=== PATIENT | female | born 1960 | race Caucasian/White ===

== ENCOUNTER 2017-06-16 09:32 | Emergency (ER) | payer BC ==
--- NOTE | 2017-06-16 10:33 | CT ---
Head CT Technique: Multiple axial sections through the brain were obtained. Intravenous contrast was not utilized. Comparison: No previous intracranial imaging. Findings: Ventricles along with basal cisterns and sulci over the convexities are within normal limits for the patient's age. No abnormal parenchymal densities are seen. No evidence of intracranial hemorrhage. No midline shift or mass effect is seen. Bone window settings were reviewed which shows no acute calvarial abnormality. Visualized sinuses are clear. Impression: 1. No acute intracranial abnormality is seen. Diagnostic code #1
--- NOTE | 2017-06-16 10:44 | EDM.PDOC ---
ED HPI GENERAL MEDICAL PROBLEM - General Chief Complaint: Headache Stated Complaint: HEAD PAIN Time Seen by Provider: 06/16/17 09:42 Source of Information: Reports: Patient, RN Notes Reviewed History Limitations: Reports: No Limitations - History of Present Illness INITIAL COMMENTS - FREE TEXT/NARRATIVE: The patient states that she developed a headache, felt at the base of her skull , coming up over the top of her head to her bilateral temples, around 09:00 this morning. It came on suddenly. It is sharp in character. She has had slight nausea, but no emesis. No visual changes. No photophobia, although she reports mild phonophobia. No neurologic symptoms, such as tingling, numbness, or weakness. While the patient gets a headache about once every 2 months, she denies a similar type headache in the past. The patient was seen by her chiropractor today, in order to treat a headache, but her chiropractor was concerned that this headache was different than most, therefore physically brought her to the ED today. The patient denies medical treatment of her headache today. The patient states that she has not previously had an imaging study of her head. The patient's PCP is Dr. Olga Lidia Kwan. Parietal Headache Pain Score (Numeric/FACES): 10 - Related Data Allergies Allergy/AdvReac Type Severity Reaction Status Date / Time No Known Allergies Allergy Verified 06/16/17 09:40 Home Meds: Home Meds Hydrochlorothiazide 12.5 mg PO DAILY 06/16/17 [History] Orphenadrine [Norflex] 1 tab PO Q12H #10 tab.er 06/16/17 [Rx] Venlafaxine. 0.5 tab PO BEDTIME 06/16/17 [History] Past Medical History Cardiovascular History: Reports: High Cholesterol, Hypertension Psychiatric History: Reports: Depression - Past Surgical History HEENT Surgical History: Reports: Oral Surgery ([place] teeth extraction) Female Surgical History: Reports: Hysterectomy, Salpingo-Oophorectomy Social & Family History - Tobacco Use Smoking Status *Q: Current Every Day Smoker Years of Tobacco use: 37 Packs/Tins Daily: 0.5 Packs/Tins Daily Comment: Down from 1 ppd - Caffeine Use Caffeine Use: Reports: Coffee - Alcohol Use Alcohol Use History: Yes Alcohol Use Frequency: Socially - Recreational Drug Use Recreational Drug Use: No - Living Situation & Occupation Living situation: Reports: Single, Alone Occupation: Employed ([employer]) ED ROS GENERAL - Review of Systems Review Of Systems: See Below Constitutional: Reports: No Symptoms HEENT: Reports: No Symptoms Respiratory: Reports: No Symptoms Cardiovascular: Reports: No Symptoms Endocrine: Reports: No Symptoms GI/Abdominal: Reports: No Symptoms : Reports: No Symptoms Musculoskeletal: Reports: No Symptoms Skin: Reports: No Symptoms Neurological: Reports: No Symptoms Psychiatric: Reports: No Symptoms Hematologic/Lymphatic: Reports: No Symptoms Immunologic: Reports: No Symptoms - Physical Exam Exam: See Below Exam Limited By: No Limitations General Appearance: Alert, WD/WN, No Apparent Distress Eye Exam: Bilateral Eye: EOMI, Normal Inspection, PERRL Ears: Normal External Exam, Normal Canal, Hearing Grossly Normal, Normal TMs Nose: Normal Inspection, Normal Mucosa, No Blood Throat/Mouth: Normal Inspection, Normal Lips, Normal Voice, No Airway Compromise Head Exam: Atraumatic, Normocephalic Neck: Normal Inspection, Supple, Non-Tender, Full Range of Motion Respiratory/Chest: No Respiratory Distress, Lungs Clear, Normal Breath Sounds, No Accessory Muscle Use Cardiovascular: Normal Peripheral Pulses, Regular Rate, Rhythm, No Gallop, No JVD, No Murmur, No Rub GI/Abdominal: Normal Bowel Sounds, Soft, Non-Tender, No Organomegaly, No Distention, No Abnormal Bruit, No Mass (Female) Exam: Deferred Rectal (Female) Exam: Deferred Neuro Exam (Abbreviated): Alert, Oriented, CN II-XII Intact, Normal Cognition, No Motor/Sensory Deficits Back Exam: Normal Inspection, Full Range of Motion, NT Extremities: Normal Inspection, Normal Range of Motion, No Pedal Edema, Normal Capillary Refill Psychiatric: Normal Affect Skin Exam: Warm, Dry, Intact, Normal Color, No Rash Course - Vital Signs Last Recorded V/S: Last Vital Signs Temp 36.6 C 06/16/17 09:38 Pulse 93 06/16/17 09:38 Resp 16 06/16/17 09:38 BP 154/116 H 06/16/17 09:38 Pulse Ox 96 06/16/17 09:38 - Orders/Labs/Meds Meds: Medications Discontinued Medications Generic Name Dose Route Start Last Admin Trade Name Freq PRN Reason Stop Dose Admin Benztropine Mesylate 1 mg 06/16/17 11:29 06/16/17 12:00 Cogentin PO 06/16/17 11:30 1 mg ONETIME STA Administration Haloperidol Lactate 5 mg 06/16/17 11:29 06/16/17 11:53 Haldol IM 06/16/17 11:30 5 mg ONETIME ONE Administration Sodium Chloride 500 mls @ 1,000 mls/hr 06/16/17 11:29 06/16/17 11:47 Normal Saline IV 06/16/17 11:58 1,000 mls/hr .BOLUS ONE Administration Ondansetron HCl 4 mg 06/16/17 11:29 06/16/17 11:48 Zofran IVPUSH 06/16/17 11:30 4 mg ONETIME ONE Administration - Re-Assessments/Exams Free Text/Narrative Re-Assessment/Exam: 06/16/17 11:25 CT of the head without contrast is read by Dr. Jalloh as: 1. No acute intracranial abnormality is seen. 06/16/17 11:30 The patient states that when she was in her teenage years, she suffered from "migraine" type headaches, would be seen in the emergency room, given a shot of something, home and sleep, and that her symptoms would resolve. She states that her current headache feels similar to that. While the patient's description of her headache is not classic for a migraine, I see no harm in treating her for migraine. If it works, then the patient's headache is a migraine, and we can prescribe an abortive medication, such as Maxalt, going forward. If it does not work, then the patient's headache is most likely a tension-type headache, which can be treated with a muscle relaxant and ibuprofen. The patient agrees with this approach. I have therefore ordered Haldol, Cogentin, Zofran, and normal saline. 06/16/17 12:13 20 minutes after IM Haldol, the patient reports no improvement of her symptoms. Significantly reduces the likelihood that her headache is migrainous in etiology. Her headache, then, is most likely a tension-type headache. I will start her on Norflex and ibuprofen, and e-prescribe additional Norflex. Departure - Departure Time of Disposition: 12:14 Disposition: Home, Self-Care 01 Condition: Good Clinical Impression: Tension type headache - Discharge Information Referrals: PCP,None [Primary Care Provider] - Forms: ED Department Discharge Additional Instructions: You were seen in the emergency room for a headache. Workup in the ER included a CT scan of her head, which was normal. You were treated with an anti-migraine medicine, which did not change your symptoms, indicating that your headache is not a migraine. Based on your history and physical examination, your headache is MOST LIKELY a tension-type headache. You have been started on the muscle relaxant Norflex. Take one tablet every 12 hours, as prescribed. You have been started on the anti-inflammatory medicine ibuprofen. Take 2-3 tablets (400-600 mg) up to every 8 hours, with food, as needed for pain. Get plenty of rest in a dark, quiet place. Stay well hydrated. If any other problems, please do not hesitate to return to the ER.
[2017-06-16] MEDS ORDERED: Ondansetron 4 MG/2 ML SDV IVPUSH ONE (11:29)
[2017-06-16] MEDS ORDERED: Haloperidol Lactate 5 MG/ML SDV IM ONE (11:29)
[2017-06-16] MEDS ORDERED: Sodium Chloride 0.9% 500 ML IV ONE (11:29)
[2017-06-16] MEDS ORDERED: Benztropine 1 MG Tab PO STA (11:29)
[2017-06-16] MEDS ORDERED: Orphenadrine 100 MG Tab.ER PO STA (12:12)
[2017-06-16] MEDS ORDERED: Ibuprofen 600 MG Tab PO ONE (12:13)
== END 2017-06-16 12:29 | disposition home or self-care (01) ==
LOC: JD.ED 09:32
DX: G44.209 Tension-type headache, unspecified, not intractable (principal); F17.210 Nicotine dependence, cigarettes, uncomplicated; I10 Essential (primary) hypertension
CPT/HCPCS: 70450; 96361; 96372; 96374; 99284; A9270; J1630; J2405; J7040

== ENCOUNTER 2018-10-21 14:30 | Emergency (ER) | payer BC ==
--- NOTE | 2018-10-21 14:49 | EDM.PDOC ---
ED HPI GENERAL MEDICAL PROBLEM - General Chief Complaint: Chest Pain Stated Complaint: SOB Time Seen by Provider: 10/21/18 14:43 Source of Information: Reports: Patient History Limitations: Reports: No Limitations - History of Present Illness INITIAL COMMENTS - FREE TEXT/NARRATIVE: 57-year-old female presents to the ED for evaluation of upper right anterior chest pain that started today. The pain is very sharp and stabbing and worsened by deep breathing i.e. pleuritic pain. She has a cough of some brownish sputum production as she is trying to quit smoking. No associated fever chills. Through to her right upper back on inspiration. No recent chest wall injuries. Her's that she had pleurisy about 25 years ago and it feels very similar. Will history especially prolonged sitting. No history of previous DVT. She did start meloxicam for arthritis about a week ago. Has ECG done by triage nurse shows sinus rhythm at 100/m with a incomplete left bundle branch block and nonspecific intraventricular conduction delay pattern. There are Q waves in 3 and aVF but they Q waves or less than 25% of the QRS complex and aVF and are considered insignificant. a history of mild hypertension. Onset: Today Onset Date: 10/21/18 Onset Time: 08:00 (Sensual he woke up with mild pain is which is progressed as the day has gone on.) Duration: Hour(s): Location: Reports: Chest (Right upper anterior chest rating through to her back) Quality: Reports: Sharp, Stabbing, Other (Pain is sharp and stabbing and pleuritic.) Severity: Moderate (Rates the pain as 7 or 8 out of 10 however.) Improves with: Reports: Other Worsens with: Reports: Other (Shallow breathing deep breathing or coughing make it much worse.) Associated Symptoms: Reports: No Other Symptoms, Chest Pain, Shortness of Breath. Denies: Confusion, Cough, cough w sputum, Diaphoresis, Fever/Chills, Headaches (See history of present illness), Loss of Appetite, Malaise, Nausea/ Vomiting, Rash, Seizure, Syncope (Subjective sensation of shortness of breath has deep breathing makes the pain in her chest worse.), Weakness Treatments [employer] EDUCATION: Reports: Other (see below) (None.) Chest Pain Score (Numeric/FACES): 8 - Related Data Allergies Allergy/AdvReac Type Severity Reaction Status Date / Time No Known Allergies Allergy Verified 06/16/17 09:40 Home Meds: Home Meds Hydrochlorothiazide 12.5 mg PO DAILY 06/16/17 [History] Venlafaxine. 0 mg PO BEDTIME 06/16/17 [History] Meloxicam 0 mg PO DAILY 10/21/18 [History] atorvaSTATin [Lipitor] 10 mg PO DAILY 10/21/18 [History] oxyCODONE HCl/Acetaminophen [Percocet 5-325 mg Tablet] 1 - 2 each PO Q4H PRN #8 tablet 10/21/18 [Rx] predniSONE [Deltasone] 20 mg PO ASDIRECTED #15 tablet 10/21/18 [Rx] Past Medical History Cardiovascular History: Reports: High Cholesterol, Hypertension Psychiatric History: Reports: Depression - Past Surgical History HEENT Surgical History: Reports: Oral Surgery ([place] teeth extraction) Female Surgical History: Reports: Hysterectomy, Salpingo-Oophorectomy Social & Family History - Caffeine Use Caffeine Use: Reports: Coffee - Living Situation & Occupation Living situation: Reports: Single, Alone Occupation: Employed ([employer]) ED ROS GENERAL - Review of Systems Review Of Systems: See Below Constitutional: Reports: No Symptoms HEENT: Reports: No Symptoms Respiratory: Reports: Shortness of Breath, Pleuritic Chest Pain (Subjective sensation of shortness of breath due to), Cough ( pleuritic chest painmild cough bringing up a little bit of brownish sputum at times. Trying to quit smoking. ) Cardiovascular: Reports: Chest Pain, Blood Pressure Problem (See history of present illness). Denies: Claudication, Dyspnea on Exertion, Edema, Lightheadedness, Orthopnea ( chronic hypertension usually well-controlled with current medications elevated at the time of examination 161/89.), Palpitations Endocrine: Reports: No Symptoms GI/Abdominal: Reports: Other (Occasional GERD or heartburn but not bad recently. ) : Reports: No Symptoms Musculoskeletal: Reports: Other (Has some arthritis particularly in her hands knees and low back. Currently started on meloxicam 15 mg a day week ago) Skin: Reports: No Symptoms Neurological: Reports: No Symptoms Psychiatric: Reports: No Symptoms Hematologic/Lymphatic: Reports: No Symptoms Immunologic: Reports: No Symptoms ED EXAM, GENERAL - Physical Exam Exam: See Below Exam Limited By: No Limitations General Appearance: Alert, WD/WN, Mild Distress (She is quite anxious.), Other ( O2 sats reveal 97% on room air respiratory rate of 18) Eye Exam: Bilateral Eye: Normal Inspection Ears: Normal TMs Throat/Mouth: Normal Inspection, Normal Lips, Normal Oropharynx Head: Atraumatic, Normocephalic Neck: Normal Inspection, Supple, Non-Tender, Full Range of Motion. No: Carotid Bruit, Lymphadenopathy (L), Lymphadenopathy (R) Respiratory/Chest: No Respiratory Distress, Lungs Clear, Normal Breath Sounds, No Accessory Muscle Use, Other (Marked chest wall tenderness on the right side particularly ribs 34 and 5 in the midclavicular line. His in comparison of the left side which was minimally tender over the fourth rib only.) Cardiovascular: Normal Peripheral Pulses, Regular Rate, Rhythm, No Edema, No Gallop, No Murmur, No Rub Peripheral Pulses: 2+: Posterior Tibial (L), Posterior Tibial (R), Dorsalis Pedis (L), Dorsalis Pedis (R) GI/Abdominal: Normal Bowel Sounds, Soft, Non-Tender, No Organomegaly, No Abnormal Bruit, No Mass, Pelvis Stable, Other (No signs of gallbladder disease. No previous surgical scars in the abdomen) Back Exam: Normal Inspection, Full Range of Motion, Other (Slight muscle spasm over rib head #7 on the right side. This did give the patient some pain on palpation as well. To be a mild rib head subluxation). No: CVA Tenderness (L), CVA Tenderness (R) Extremities: Normal Inspection, Normal Range of Motion, Non-Tender, No Pedal Edema Neurological: Alert, Oriented, CN II-XII Intact, Normal Cognition Psychiatric: Anxious (Mildly anxious.) Skin Exam: Warm, Dry, Intact, Normal Color, No Rash EKG INTERPRETATION EKG Date: 10/21/18 Time: 14:38 Rhythm: NSR Rate (Beats/Min): 99 Cameron: Normal P-Wave: Present QRS: Other (There is a nonspecific intraventricular conduction delay. Aleve she is going on to develop a left bundle branch block. There are Q waves in 3 and aVF. Q-wave in aVF is less than 25% of the QRS complexes is considered insignificant. Therefore I disagree with the computer finding of an inferior wall CA.) ST-T: Other (There is T-wave flattening in lead 3.) QT: Prolonged (QTC is minimally prolonged) EKG Interpretation Comments: Abnormal ECG Course - Vital Signs Last Recorded V/S: Last Vital Signs Temp 36.4 C 10/21/18 14:37 Pulse 101 H 10/21/18 14:37 Resp 18 10/21/18 14:37 BP 161/89 H 10/21/18 14:37 Pulse Ox 97 10/21/18 14:37 - Orders/Labs/Meds Orders: Active Orders 24 hr Category Date Time Status EKG Documentation Completion [RC] STAT Care 10/21/18 14:54 Active Sodium Chloride 0.9% [Normal Saline] 1,000 ml Med 10/21/18 15:00 Active IV ASDIRECTED Medication Orders Sodium Chloride (Normal Saline) 1,000 mls @ 125 mls/hr IV ASDIRECTED RADHA Last Admin: 10/21/18 15:05 Dose: 125 mls/hr Labs: Laboratory Tests 10/21/18 10/21/18 10/21/18 Range/Units 15:00 15:00 15:00 WBC 9.17 (3.98-10.04) K/mm3 RBC 4.71 (3.98-5.22) M/mm3 Hgb 14.5 (11.2-15.7) gm/L Hct 44.0 (34.1-44.9) % MCV 93.4 (79.4-94.8) fl MCH 30.8 (25.6-32.2) pg MCHC 33.0 (32.2-35.5) g/dl RDW Std Deviation 44.2 (36.4-46.3) fL Plt Count 235 (182-369) K/mm3 MPV 9.1 L (9.4-12.3) fl Neutrophils % (Manual) 78 H (40-60) % Band Neutrophils % 0 (0-10) % Lymphocytes % (Manual) 18 L (20-40) % Atypical Lymphs % 0 % Monocytes % (Manual) 3 (2-10) % Eosinophils % (Manual) 1 (0.7-5.8) % Basophils % (Manual) 0 L (0.1-1.2) Platelet Estimate Adequate RBC Morph Comment Normal PT 10.1 (9.5-12.1) SECONDS INR 0.93 D-Dimer, Quantitative 0.91 H (0.19-0.50) mg/L Sodium 142 (136-145) mEq/L Potassium 3.6 (3.5-5.1) mEq/L Chloride 104 (98-107) mEq/L Carbon Dioxide 27 (21-32) mEq/L Anion Gap 14.6 (5-15) BUN 21 H (7-18) mg/dL Creatinine 0.9 (0.55-1.02) mg/dL Est Cr Clr Drug Dosing 63.78 mL/min Estimated GFR (MDRD) > 60 (>60) mL/min BUN/Creatinine Ratio 23.3 H (14-18) Glucose 155 H (74-106) mg/dL Calcium 9.3 (8.5-10.1) mg/dL Total Bilirubin 0.3 (0.2-1.0) mg/dL AST 18 (15-37) U/L ALT 40 (14-59) U/L Alkaline Phosphatase 114 (46-116) U/L Lactate Dehydrogenase 194 (81-234) U/L CK-MB (CK-2) 0.5 (0-3.6) ng/ml Troponin I < 0.017 (0.00-0.056) ng/mL C-Reactive Protein < 0.2 (<1.0) mg/dL Total Protein 7.3 (6.4-8.2) g/dl Albumin 4.0 (3.4-5.0) g/dl Globulin 3.3 gm/dL Albumin/Globulin Ratio 1.2 (1-2) Meds: Medications Generic Name Dose Route Start Last Admin Trade Name Freq PRN Reason Stop Dose Admin Sodium Chloride 1,000 mls @ 125 mls/hr 10/21/18 15:00 10/21/18 15:05 Normal Saline IV 125 mls/hr ASDIRECTED RADHA Administration Discontinued Medications Generic Name Dose Route Start Last Admin Trade Name Freq PRN Reason Stop Dose Admin Hydromorphone HCl 0.5 mg 10/21/18 14:53 10/21/18 15:06 Dilaudid IVPUSH 10/21/18 14:54 0.5 mg ONETIME ONE Administration Ondansetron HCl 4 mg 10/21/18 14:53 10/21/18 15:06 Zofran IVPUSH 10/21/18 14:54 4 mg ONETIME ONE Administration - Radiology Interpretation Free Text/Narrative:: 57-year-old female presents to the ED with pleuritic right upper anterior chest pain radiate through to her right upper back. She awoke with mild cyanosis morning but as the day has gone on the pain has worsened. Every breath hurts indicating a pleuritic component to the pain. I'm able to localize pain to the right upper anterior ribs particularly 34 and 5 in the midclavicular line. Clear to auscultation. Eyes cough or sputum production. No history of DVT. I was going to give her Toradol 30 mg IV but apparently she started meloxicam 15 mg once daily about a week ago and therefore Toradol is relatively contraindicated. We'll give her Dilaudid 0.5 mg IV with Zofran 4 mg IV for pain rated at 7-8 out of 10. One view chest x-ray. Routine labs to include a d-dimer and a troponin. ECG does not show any signs of acute ischemia. It appears to be chest wall in origin with a pleuritic component. - Re-Assessments/Exams Free Text/Narrative Re-Assessment/Exam: 10/21/18 15:45 portable chest x-ray reveals heart size to be normal tortuous thoracic aorta is seen lungs are clear with no parenchymal changes. Scoliosis is noted within the spine with scattered degenerative changes. 10/21/18 16:04 Part of the labs are back. PT is 10.1 with an INR of 0.93D dimer is slightly elevated at 0.91. Sodium 142 with potassium of 3.6. Chloride 104 the bicarbonate 27. Anion gap is 14.6. BUN is 21 with a creatinine of 0.9. GFR is greater than 60. Blood urea creatinine ratio is elevated at 23.3 indicating volume depletion. Glucose 155. Calcium 9.3 liver function normal. LDH is 194 normal. CK-MB fraction 0.5 troponin I less than 0.017. C-reactive protein less than 0.2. 10/21/18 16:39 White count is 9.17 with 70% neutrophils and no band cells reported. Hemoglobin is 14.5 hematocrit is 44.0. Platelet count is 235,000. Discussed the findings with the patient. It appears to be chest wall inflammation. I'm going to add Deltasone 20 mg 3 times a day to her treatment plan for 5 days and then once in the morning only for another 5 days to relieve inflammation. She's already on meloxicam and she will continue this once daily. Departure - Departure Time of Disposition: 16:43 Disposition: Home, Self-Care 01 Condition: Fair Clinical Impression: Non-cardiac chest pain, Pain of anterior chest wall with respiration Prescriptions: oxyCODONE HCl/Acetaminophen [Percocet 5-325 mg Tablet] 1 - 2 each PO Q4H PRN #8 tablet PRN Reason: pain relief. predniSONE [Deltasone] 20 mg PO ASDIRECTED #15 tablet Referrals: Nichole Atkinson NP [Primary Care Provider] - Forms: ED Department Discharge Additional Instructions: Evaluation the emergency room today in regards to development of pleuritic right upper anterior chest pain. The pain appears to be coming from the chest wall as ribs 234 and 5 are exquisitely tender in the midline of the collarbone. Test x-ray was clear heart tracing was normal. Lab tests proved to be negative for any infection or heart attack or blood clot in the lung. Images therefore anti-inflammatory Deltasone 20 mg tablet first thing in the morning with breakfast and again at supper time for 5 days and then once in the morning only for another 5 days. First tablet of prednisone was given in the ED before you were discharged from the hospital. He takes 4-6 hours to start to work. Continue with meloxicam once daily as well. In pill Percocet 5/325 mg may be taken if needed for severe pain in the next few days. Only can be used when you' re not at work or not driving. Expect gradual improvement in the pleuritic chest pain over the next 3 days. Follow-up with personal care physician or return to the ED if any further problems occur. - My Orders Last 24 Hours: My Active Orders 10/21/18 14:54 EKG Documentation Completion [RC] STAT 10/21/18 15:00 Sodium Chloride 0.9% [Normal Saline] 1,000 ml IV ASDIRECTED - Assessment/Plan Last 24 Hours: My Active Orders 10/21/18 14:54 EKG Documentation Completion [RC] STAT 10/21/18 15:00 Sodium Chloride 0.9% [Normal Saline] 1,000 ml IV ASDIRECTED
[2018-10-21] MEDS ORDERED: HYDROmorphone 1 MG/ML Syringe IVPUSH ONE (14:53)
[2018-10-21] MEDS ORDERED: Ondansetron 4 MG/2 ML SDV IVPUSH ONE (14:53)
[2018-10-21] MEDS ORDERED: Sodium Chloride 0.9% 1,000 ML IV SCH (15:00)
--- NOTE | 2018-10-21 15:39 | CR ---
Chest: Portable view of the chest was obtained. Comparison: No prior chest x-ray. Heart size is normal. Tortuous thoracic aorta is seen. Lungs are clear with no acute parenchymal change. Scoliosis is noted within the spine with scattered degenerative change. Impression: 1. Incidental findings. Nothing acute is seen. Diagnostic code #2
[2018-10-21] MEDS ORDERED: predniSONE 20 MG Tab PO ONE (16:44)
== END 2018-10-21 17:24 | disposition home or self-care (01) ==
LOC: JD.ED 14:30
DX: R07.89 Other chest pain (principal); I10 Essential (primary) hypertension; E78.00 Pure hypercholesterolemia, unspecified; Z79.899 Other long term (current) drug therapy
CPT/HCPCS: 36415; 71045; 80053; 82553; 83615; 84484; 85007; 85027; 85379; 85610; 86140; 93005; 96361; 96374; 96375; 99284; A9270; J1170; J2405; J7040

== ENCOUNTER 2024-12-07 09:11 | Emergency (ER) | payer BC, MEDICARE ==
[2024-12-07 09:57] LABS: BASOPHILS PERCENT AUTO 0.3 % (0.0-1.0); EOSINOPHILS PERCENT AUTO 0.3 % (0.0-6.0); HEMATOCRIT 38.1 % (37.0-47.0); HEMOGLOBIN 13.2 gm/dl (12.0-16.0); IMMATURE GRAN ABSOLUTE AUTO 0.03 K/mm3 (0.00-0.05); IMMATURE GRAN PERCENT AUTO 0.3 % (0.0-0.4); LYMPHOCYTES ABSOLUTE AUTO 1.3 K/mm3 (1.0-4.8); LYMPHOCYTES PERCENT AUTO 12.2 % (24.0-44.0); MEAN CORPUSCULAR HEMOGLOBIN 31.7 pg (28.0-32.0); MEAN CORPUSCULAR HGB CONC 34.6 g/dl (32.0-36.0); MEAN CORPUSCULAR VOLUME 91.4 fl (83.0-99.0); MEAN PLATELET VOLUME 10.8 fl (9.4-12.3); MONOCYTES ABSOLUTE AUTO 1.6 K/mm3 (0.0-0.8); MONOCYTES PERCENT AUTO 14.8 % (0.0-8.0); NEUTROPHILS ABSOLUTE AUTO 7.9 K/mm3 (1.8-7.7); NEUTROPHILS PERCENT AUTO 72.1 % (41.0-71.0); PLATELET COUNT,PLT 166 K/mm3 (150-400); RED BLOOD CELL COUNT 4.17 M/mm3 (4.10-5.30); WHITE BLOOD CELL COUNT,WBC 10.95 K/mm3 (3.9-11.3)
[2024-12-07 10:22] LABS: INR 4.35; PROTHROMBIN TIME 41.9 SECONDS (9.7-12.0)
[2024-12-07 10:23] LABS: PTT,PARTIAL THROMBOPLSTIN TIME 52.6 SECONDS (21.7-31.4)
[2024-12-07 10:29] LABS: LACTIC ACID 1.2 mmol/L (0.4-2.0)
[2024-12-07 10:35] LABS: A/G RATIO 0.5 (1-2); ALBUMIN 1.9 g/dl (3.4-5.0); ANION GAP 11.3 (5-15); BILIRUBIN TOTAL 9.6 mg/dL (0.2-1.0); BUN/CREATININE RATIO 11.7 (14-18); CALCIUM 9.1 mg/dL (8.5-10.1); CREATININE 0.6 mg/dL (0.55-1.02); EST CRCL DRUG DOSING (CG) 87.51 mL/min; MAGNESIUM 1.7 mg/dL (1.8-2.4); POTASSIUM,K 4.3 mEq/L (3.5-5.1); PROTEIN TOTAL,TP 5.6 g/dl (6.4-8.2)
[2024-12-07] MEDS: Sodium Chloride 0.9% 10 ML Syringe FLUSH PRN (10:49)
[2024-12-07] MEDS: Iopamidol 612 MG/ML 100 ML Bottle IVPUSH ONE (10:49)
[2024-12-07 10:50] LABS: SLIDE REVIEW ABNORMAL SMEAR
[2024-12-07 12:11] LABS: APPEARANCE,URINE CLEAR (Clear); BILIRUBIN,URINE 3+ (Negative); COLOR,URINE DARK YELLOW (Yellow); GLUCOSE,URINE TRACE (Negative); KETONES,URINE TRACE (Negative); LEUKOCYTE ESTERASE,URINE NEGATIVE (Negative); NITRITE,URINE NEGATIVE (Negative); OCCULT BLOOD,URINE TRACE-INTACT (Negative); PROTEIN,URINE 1+ (Negative); UROBILINOGEN,URINE 0.2 (0.2-1.0)
[2024-12-07] MEDS: Albumin 25% 12.5 GM/50 ML BAG IV ONE (12:16)
[2024-12-07] MEDS: Albumin 25% 12.5 GM/50 ML BAG IV SCH (12:31)
[2024-12-07 12:49] LABS: BACTERIA,URINE FEW /hpf (FEW); WBC,URINE 0-5 /hpf (0-5)
[2024-12-07 12:50] LABS: MUCUS,URINE MODERATE /hpf (FEW)
[2024-12-07] MEDS ORDERED: oxyCODONE 5 MG Tab PO ONE (14:17)
[2024-12-07] MEDS ORDERED: Naloxone 0.4 MG/ML SDV IVPUSH PRN (15:09)
[2024-12-07] MEDS: fentaNYL 100 MCG/2 ML SDV IVPUSH ONE (15:15)
[2024-12-07 15:19] LABS: BODY FLUID TYPE PERITONEAL FLUID
[2024-12-07 15:43] LABS: GLUCOSE,BODY FLUID 114 mg/dL
[2024-12-07 15:49] LABS: APPEARANCE,BODY FLUID CLOUDY; COLOR,BODY FLUID RED; RBC,BODY FLUID 36000 /uL (0-0); SITE,BODY FLUID PERITONEAL; VOLUME BODY FLUID 60 ML; WBC BODY FLUID 251 /uL (0-0)
[2024-12-07 16:11] LABS: PROTEIN,BODY FLUID < 2.0 gm/dl
== END 2024-12-07 16:40 | disposition home or self-care (01) ==
LOC: JD.ED 09:11
DX: R53.1 Weakness (principal); E78.00 Pure hypercholesterolemia, unspecified; F17.210 Nicotine dependence, cigarettes, uncomplicated; Z79.899 Other long term (current) drug therapy; Z90.710 Acquired absence of both cervix and uterus
CPT/HCPCS: 36415; 71045; 74177; 80053; 81001; 82945; 83605; 83735; 83880; 84157; 85025; 85610; 85730; 87070; 87205; 89050; 93970; 96365; 96375; 99285; J3010; P9047; Q9967; 99284